=== PATIENT | female | born 1975 | race Caucasian/White ===

== ENCOUNTER → 2022-03-17 13:13 | Outpatient (BNVA) | payer BC, SELFPAY | PROVIDERS: PCP Nurse Practitioner Family; Visit Provider Nurse Practitioner Family | DX: M43.16 Spondylolisthesis, lumbar region (principal); M48.07 Spinal stenosis, lumbosacral region | CPT/HCPCS: 72100 ==

== ENCOUNTER 2022-09-21 11:30 | Outpatient (CLI) | payer BC, SELFPAY ==
[2022-09-22 15:40] LABS: Beef (27) IgE <0.10 kU/L; Beef Class 0; Lamb (F88) IgE <0.10 kU/L; Lamb Class 0; Pork (F26) IgE <0.10 kU/L; Pork Class 0
[2022-09-27 11:34] LABS: Galactose-alpha-1,3 IgE <0.10 kU/L (<0.10)
== END 2022-09-21 11:31 | disposition home or self-care (01) ==
PROVIDERS: PCP Nurse Practitioner Family; Visit Provider Nurse Practitioner Family
DX: L50.8 Other urticaria (principal)
CPT/HCPCS: 36415; 86003; 86008

== ENCOUNTER 2022-12-06 10:15 | Outpatient (CLI) | payer BC, SELFPAY ==
--- NOTE | 2022-12-06 10:32 | XRR_ITS ---
PROCEDURE INFORMATION: Exam: XR Chest Exam date and time: 12/06/2022 10:36 AM Age: 47 years old Clinical indication: Other: Abnormal weight loss TECHNIQUE: Imaging protocol: Radiologic exam of the chest. Views: 2 views. COMPARISON: No relevant prior studies available. FINDINGS: Lungs: Unremarkable. No consolidation. Pleural spaces: Unremarkable. No pleural effusion. No pneumothorax. Heart/Mediastinum: Unremarkable. No cardiomegaly. Bones/joints: Unremarkable. XR/XR chest 2V* [id number] IMPRESSION: No acute findings.
[2022-12-06 12:12] LABS: Free T4 Free Thyroxine 1.15 ng/dL (0.82-1.77); Thyroid Stimulating Hormone 1.22 uIU/mL (0.27-4.20)
== END 2022-12-06 10:16 | disposition home or self-care (01) ==
PROVIDERS: PCP Nurse Practitioner Family; Visit Provider Dermatology
DX: L23.9 Allergic contact dermatitis, unspecified cause (principal); L29.8 Other pruritus; R63.4 Abnormal weight loss
CPT/HCPCS: 36415; 71046; 84439; 84443